=== PATIENT | female | born 1945 | race Asian ===

== ENCOUNTER 2020-03-14 17:33 | Emergency (ER) | payer MEDICARE ==
[~2020-03-14] VITALS: Ht 154.9 cm; Wt 60.0 kg
[2020-03-14] MEDS ORDERED: ACET-2865 PO (17:37)
[2020-03-14 17:41] VITALS: BP 136/76
[2020-03-14 18:40] LABS: COVID AG,FIA SOURCE NASOPHARYNGEAL
== END 2020-03-14 18:39 | disposition home or self-care (01) ==
LOC: EMS 17:33
DX: U07.1 COVID-19 (principal); J06.9 Acute upper respiratory infection, unspecified
CPT/HCPCS: 87426; 99283; C9803

== ENCOUNTER 2021-08-31 13:48 | Emergency (ER) | payer MEDICARE ==
[~2021-08-31] VITALS: Ht 154.9 cm; Wt 45.5 kg
[~2021-08-31 13:48] MED LIST: ACET-2247 PO; AZIT-84 PO
[2021-08-31 15:06] VITALS: BP 145/76
== END 2021-08-31 16:18 | disposition left against medical advice (07) ==
LOC: EMS 13:52
DX: R55 Syncope and collapse (principal); Z53.21 Procedure and treatment not carried out due to patient leaving prior to being seen by health care provider
CPT/HCPCS: 93005

== ENCOUNTER 2021-09-07 20:16 | Emergency (ER) | payer MEDICARE ==
[~2021-09-07] VITALS: Ht 154.9 cm; Wt 45.5 kg
[2021-09-07 22:56] LABS: ANION GAP 9 mmol/L (8-16); CALCIUM, TOTAL 9.7 mg/dL (8.8-10.5); CARBON DIOXIDE 26 mmol/L (22-29); CHLORIDE 107 mmol/L (98-107); CREATININE 0.56 mg/dL (0.60-1.30); GLOMERULAR FILTR. RATE CALC > 60 mL/min (>60); GLUCOSE,RANDOM 138 mg/dL (70-110); SODIUM SERUM 142 mmol/L (136-145); UREA NITROGEN, BLOOD 29 mg/dL (7-18)
[2021-09-07 23:35] LABS: MEAN CORPUSCULAR HEMOGLOBIN 40.3 pg (26.0-34.0); MEAN CORPUSCULAR HGB CONC 34.6 G/dL (31.0-37.0); MEAN CORPUSCULAR VOLUME 117 fL (80-100); RED BLOOD CELL COUNT(AUTO) 0.74 MIL/uL (4.00-5.20); RED CELL DISTRIBUTION WIDTH 15.6 % (11.5-14.5)
[2021-09-07 23:42] LABS: HEMATOCRIT 8.6 % (36-46); PLATELET COUNT (AUTO) 4 K/uL (150-450)
[2021-09-07 23:44] LABS: BAND NEUTROPHILS % (MANUAL) 0 % (0-5)
[2021-09-07 23:59] LABS: APPEARANCE,URINE CLEAR (CLEAR); BILIRUBIN,URINE NEGATIVE (NEGATIVE); GLUCOSE, URINE (UA) NEGATIVE (NEGATIVE); KETONES,URINE NEGATIVE (NEGATIVE); LEUKOCYTE ESTERASE ,URINE TRACE (NEGATIVE); NITRATE,URINE NEGATIVE (NEGATIVE); OCCULT BLOOD,URINE NEGATIVE (NEGATIVE); PH,URINE 6.5 (5.0-8.0); PROTEIN,URINE NEGATIVE (NEGATIVE); SPECIFIC GRAVITIY, URINE 1.017 (1.003-1.030)
[2021-09-08] VITALS (9 sets, daily range): BP systolic 115–169; BP diastolic 47–79
[2021-09-08 00:25] LABS: D-DIMER 1.11 mg/L FEU (0.00-0.50)
[2021-09-08 00:47] LABS: BACTERIA,URINE None Seen /HPF (None Seen); RBC,URINE None Seen /HPF (0-2)
[2021-09-08 00:50] LABS: LACTATE DEHYDROGENASE 243 U/L (81-234)
[2021-09-08 01:14] LABS: COVID AG,FIA SOURCE NASOPHARYNGEAL
[2021-09-08] MEDS ORDERED: SODIUM CHLORIDE 0.9% 1,000 ML ONE (01:15)
[2021-09-08 01:33] LABS: PROTHROMBIN TIME 10.9 SEC (9.4-11.6)
[2021-09-08 01:36] LABS: ALANINE AMINOTRANSFERASE 22 U/L (12-78); ALBUMIN 3.7 g/dL (3.4-5.0); ALKALINE PHOSPHATASE 84 U/L (46-116); ASPARTATE AMINOTRANSFERASE 15 U/L (15-37); BILIRUBIN,TOTAL 1.9 mg/dL (0.1-1.0); TOTAL PROTEIN, SERUM 7.6 g/dL (6.4-8.2)
[2021-09-08] MEDS ORDERED: MethylPREDNISolone SOD SUCC 125 MG/2 ML VIAL IVP ONE (01:45)
[2021-09-08 01:54] LABS: LYMPHOCYTES % (MANUAL) 80 % (22-44); MONOCYTES % (MANUAL) 4 % (2-9); REACTIVE LYMPHOCYTES 4 % (0-0); SEGMENTED NEUTROPHILS % 12 % (40-70)
[2021-09-10 13:17] LABS: HIV 1-2 SCREEN 4TH GEN W/RFLX Non Reactive (Non Reactive)
[2021-09-12 14:06] LABS: ADAMTS13 ACTIVITY 66.6 % (>66.8)
== END 2021-09-08 06:35 | disposition short-term general hospital (02) ==
LOC: EMS 20:19
DX: D61.818 Other pancytopenia (principal); Z20.822 Contact with and (suspected) exposure to COVID-19; R41.82 Altered mental status, unspecified; D58.9 Hereditary hemolytic anemia, unspecified; R94.31 Abnormal electrocardiogram [ECG] [EKG]
CPT/HCPCS: 36415; 36430; 70450; 71045; 80048; 80076; 81001; 83010; 83605; 83615; 83735; 83880; 84484; 85025; 85045; 85362; 85379; 85384; 85397; 85610; 85730; 86850; 86900; 86901; 86923; 87040; 87207; 87389; 87426; 93005; 96374; 99291; J2930; J7030; P9016